=== PATIENT | male | born 1965 | race African-American/Black ===

== ENCOUNTER 2019-04-05 10:04 | Emergency (ER) | payer SELFPAY ==
[~2019-04-05] VITALS: Ht 182.9 cm; Wt 90.7 kg
[2019-04-05 10:04] VITALS: BP 162/97
--- NOTE | 2019-04-05 11:13 | PHYS DOC ---
Past Medical History Past Medical History: High Cholesterol, Hypertension Past Surgical History: No Surgical History Alcohol Use: Occasionally Drug Use: Marijuana, Other Social History Narrative: K2 Adult General Chief Complaint Chief Complaint: ANXIETY/PANIC ATTACK HPI HPI Patient is a 53 year old homeless male who presents via EMS with complaining of panic attack. Patient complaining of frequent episodes of panic attack for the last 10 days and states since this morning he had a constant panic attack and was seen at a mental place for treatment but ambulance was called a cousin of his anxiety. Patient denies suicidal or homicidal ideation and hallucination. Patient denies using alcohol and drugs. Review of Systems Review of Systems Constitutional: Denies fever or chills [] Eyes: Denies change in visual acuity, redness, or eye pain [] HENT: Denies nasal congestion or sore throat [] Respiratory: Denies cough or shortness of breath [] Cardiovascular: No additional information not addressed in HPI [] GI: Denies abdominal pain, nausea, vomiting, bloody stools or diarrhea [] : Denies dysuria or hematuria [] Musculoskeletal: Denies back pain or joint pain [] Integument: Denies rash or skin lesions [] Neurologic: Denies headache, focal weakness or sensory changes [] Endocrine: Denies polyuria or polydipsia [] All other systems were reviewed and found to be within normal limits, except as documented in this note. Allergies Allergies Allergies Coded Allergies Type Severity Reaction Last Updated Verified lisinopril Allergy Intermediate "vomiting" 04/05/19 Yes Physical Exam Physical Exam Constitutional: Well developed, well nourished, no distress, non-toxic appearance. [] HENT: Normocephalic, atraumatic. Eyes: PERRLA, EOMI, conjunctiva normal, no discharge. [] Neck: Normal range of motion, no tenderness, supple, no stridor. [] Cardiovascular:Heart rate regular rhythm, no murmur [] Lungs & Thorax: Bilateral breath sounds clear to auscultation [] Abdomen: Bowel sounds normal, soft, no tenderness, no masses, no pulsatile masses. [] Skin: Warm, dry, no erythema, no rash. [] Back: No tenderness, no CVA tenderness. [] Extremities: No tenderness, no cyanosis, no clubbing, ROM intact, no edema. [] Neurologic: Alert and oriented X 3, no focal deficits noted. [] Psychologic: Affect normal, judgement normal, mood normal. [] Current Patient Data Vital Signs Vital Signs Date Time Temp Pulse Resp B/P (MAP) Pulse Ox O2 Delivery O2 Flow Rate FiO2 04/05/19 10:04 97.6 59 18 162/97 (118) 99 Room Air 97.6 EKG EKG [] Radiology/Procedures Radiology/Procedures [] Course & Med Decision Making Course & Med Decision Making Evaluation of patient in ER showed 53-year-old homeless patient presented to ER with complaining of panic attack. Patient was evaluated yesterday at [facility] for the same problem and did not get any medication. Patient was evaluated by PAT team staff and did not have criteria for inpatient treatment. Resources for shelters and mental health clinic was provided. Short time hydroxyzine#10 and Xanax#10 prescription was given. discharge: I've spoken with the patient and/or caregivers. I've explained the patient's condition, diagnosis and treatment plan based on information available to me at this time. I've answered the patient's and/or caregivers questions and addressed any concerns. The patient and/or caregivers have a good understanding the patient's diagnosis, condition and treatment plan as can be expected at this point. Vital signs have been stabilized. The patient's condition is stable for discharge from the emergency department. The patient will pursue further outpatient evaluation with her primary care provider or other designated consulting physician as outlined in the discharge instructions. Patient and/or caregivers are agreeable to this plan of care and follow-up instructions have been explained in detail. The patient and/or caregivers have received these instructions in written format and expressed understanding of these discharge instructions. The patient and her caregivers are aware that if any significant change in condition or worsening of symptoms should prompt him to immediately return to this of the closest emergency department. If an emergent department is not readily available I would encourage him to call 911. Loc Disclaimer [place] Disclaimer This electronic medical record was generated, in whole or in part, using a voice recognition dictation system. Departure Departure Impression: Primary Impression: Panic attack Additional Impressions: Homelessness Insomnia Disposition: HOME, SELF-CARE (at 1137) Condition: IMPROVED Patient Instructions: Anxiety and Panic Attacks Additional Instructions: Drink plenty of liquids Follow-up with your primary care physician in 3-5 days Return to ER if not getting better Follow-up with mental health clinic Scripts Alprazolam (XANAX) 0.5 Mg Tablet 1 TAB PO TID PRN for ANXIETY, #10 TAB Prov: SHANDRA LUNSFORD MD 04/05/19 Hydroxyzine Hcl (HYDROXYZINE HCL) 25 Mg Tablet 1 TAB PO QHS PRN for itching, #10 TAB Prov: SHANDRA LUNSFORD MD 04/05/19 Problem Qualifiers Additional Impressions: Insomnia Insomnia type: unspecified Qualified Codes: G47.00 - Insomnia, unspecified SHANDRA LUNSFORD MD Apr 05, 2019 11:13
[2019-04-05] MEDS ORDERED: ALPR0.5T PO (11:41)
[2019-04-05] MEDS ORDERED: HYDR25TA PO (11:41)
== END 2019-04-05 11:55 | disposition home or self-care (01) ==
LOC: ER 10:04
DX: F41.0 Panic disorder [episodic paroxysmal anxiety] (principal); G47.00 Insomnia, unspecified; Z59.0 Homelessness; E78.00 Pure hypercholesterolemia, unspecified; I10 Essential (primary) hypertension; Z88.8 Allergy status to other drugs, medicaments and biological substances
CPT/HCPCS: 99283

== ENCOUNTER 2019-04-14 23:07 | Emergency (ER) | payer SELFPAY ==
[~2019-04-14] VITALS: Ht 182.9 cm; Wt 90.7 kg
[~2019-04-14 23:07] MED LIST: ALPR0.5T PO; HYDR25TA PO
[2019-04-15] MEDS ORDERED: IV NORMAL SALINE 1000ML BAG 1,000 ML IV ONE
[2019-04-15 00:08] LABS: BASO # 0.1 x10^3/uL (0.0-0.2); BASO % 1 % (0-3); EOS # 0.2 x10^3/uL (0.0-0.7); EOS % 3 % (0-3); HEMATOCRIT 38.3 % (39.0-53.0); HEMOGLOBIN 13.2 g/dL (13.0-17.5); LYMPH # 2.1 x10^3/uL (1.0-4.8); LYMPH % 30 % (24-48); MEAN CORPUSCULAR HEMOGLOBIN 32 pg (25-35); MEAN CORPUSCULAR HGB CONC 35 g/dL (31-37); MEAN CORPUSCULAR VOLUME 93 fL (79-100); MONO # 0.8 x10^3/uL (0.0-1.1); MONO % 12 % (0-9); NEUT # 3.8 x10^3/uL (1.8-7.7); NEUT % 54 % (31-73); PLATELET COUNT 226 x10^3/uL (140-400); RED BLOOD COUNT 4.11 x10^6/uL (4.30-5.70); RED CELL DISTRIBUTION WIDTH 13.5 % (11.5-14.5); WHITE BLOOD COUNT 7.1 x10^3/uL (4.0-11.0)
[2019-04-15 00:15] LABS: CALCIUM 8.8 mg/dL (8.5-10.1); CREATININE 0.9 mg/dL (0.7-1.3); GFR 107.6; POTASSIUM 4.1 mmol/L (3.5-5.1)
[2019-04-15 00:21] LABS: ALBUMIN 3.9 g/dL (3.4-5.0); ALBUMIN/GLOBULIN RATIO 1.3 (1.0-1.7); MAGNESIUM 2.2 mg/dL (1.8-2.4); TOTAL BILIRUBIN 0.3 mg/dL (0.2-1.0)
[2019-04-15 00:27] VITALS: BP 135/87
[2019-04-15] MEDS ORDERED: LORA0.5T96 PO (00:30)
--- NOTE | 2019-04-15 00:30 | PHYS DOC ---
Past Medical History Past Medical History: Anxiety, High Cholesterol, Hypertension Past Surgical History: No Surgical History Smoking: Cigarettes Alcohol Use: Occasionally Drug Use: Marijuana Adult General Chief Complaint Chief Complaint: ANXIETY/PANIC ATTACK HPI HPI 53 y/o male presents via EMS with report of palpitations and increased anxiety x 1 hour. Reports some associated headache and "chest tightness". Denies fever/chills. Denies neck pain. Denies trauma. Reports tried taking alpraz olam and hydroxyzine without improvement of symptoms. Denies leg swelling or calf tenderness. Review of Systems Review of Systems Constitutional: Denies fever or chills Eyes: Denies redness or eye pain HENT: Denies nasal congestion or sore throat Respiratory: Denies cough or shortness of breath Cardiovascular: Reports chest "tightness" and palpitations GI: Denies abdominal pain, nausea, or vomiting : Denies dysuria or hematuria Musculoskeletal: Denies back pain or joint pain Integument: Denies rash or skin lesions Neurologic: Reports headache; denies focal weakness or sensory changes Psychiatric: Reports life stressors and anxiety; denies suicidal or homicidal ideation Complete systems were reviewed and found to be within normal limits, except as documented in this note. Current Medications Current Medications Current Medications Medications (Trade) Dose Ordered Sig/Reymundo Start Time Stop Time Status Last Admin Dose Admin Lorazepam (Ativan Inj) 0.5 mg 1X ONCE 04/15/19 00:00 04/15/19 00:01 DC 04/15/19 00:05 0.5 MG Sodium Chloride 1,000 ml @ 1,000 mls/hr 1X ONCE 04/15/19 00:00 04/15/19 00:47 DC 04/15/19 00:04 1,000 MLS/HR Allergies Allergies Allergies Coded Allergies Type Severity Reaction Last Updated Verified lisinopril Allergy Intermediate "vomiting" 04/05/19 Yes Physical Exam Physical Exam Constitutional: Well developed, well nourished, anxious, non-toxic appearance HENT: Normocephalic, atraumatic, oropharynx moist Eyes: EOMI, PERRL, conjunctiva normal, no discharge Neck: Normal range of motion, no tenderness, supple Cardiovascular: Heart rate normal, regular rhythm Lungs & Thorax: Bilateral breath sounds clear to auscultation, no wheezing Abdomen: Soft, no tenderness Skin: Warm, dry, no erythema, no rash Extremities: No tenderness, ROM intact, no edema Neurologic: Alert and oriented X 3, normal sensation and motor function, cerebellar function intact, no focal deficits noted Psychologic: Affect anxious, judgement normal Current Patient Data Vital Signs Vital Signs Date Time Temp Pulse Resp B/P (MAP) Pulse Ox O2 Delivery O2 Flow Rate FiO2 04/15/19 00:27 70 16 135/87 (103) 95 Room Air 04/14/19 23:10 98.1 98.1 Lab Values Laboratory Tests Test 04/14/19 23:59 White Blood Count 7.1 x10^3/uL (4.0-11.0) Red Blood Count 4.11 x10^6/uL (4.30-5.70) L Hemoglobin 13.2 g/dL (13.0-17.5) Hematocrit 38.3 % (39.0-53.0) L Mean Corpuscular Volume 93 fL (79-100) Mean Corpuscular Hemoglobin 32 pg (25-35) Mean Corpuscular Hemoglobin Concent 35 g/dL (31-37) Red Cell Distribution Width 13.5 % (11.5-14.5) Platelet Count 226 x10^3/uL (140-400) Neutrophils (%) (Auto) 54 % (31-73) Lymphocytes (%) (Auto) 30 % (24-48) Monocytes (%) (Auto) 12 % (0-9) H Eosinophils (%) (Auto) 3 % (0-3) Basophils (%) (Auto) 1 % (0-3) Neutrophils # (Auto) 3.8 x10^3/uL (1.8-7.7) Lymphocytes # (Auto) 2.1 x10^3/uL (1.0-4.8) Monocytes # (Auto) 0.8 x10^3/uL (0.0-1.1) Eosinophils # (Auto) 0.2 x10^3/uL (0.0-0.7) Basophils # (Auto) 0.1 x10^3/uL (0.0-0.2) Sodium Level 143 mmol/L (136-145) Potassium Level 4.1 mmol/L (3.5-5.1) Chloride Level 107 mmol/L (98-107) Carbon Dioxide Level 31 mmol/L (21-32) Anion Gap 5 (6-14) L Blood Urea Nitrogen 18 mg/dL (8-26) Creatinine 0.9 mg/dL (0.7-1.3) Estimated GFR (Cockcroft-Gault) 107.6 BUN/Creatinine Ratio 20 (6-20) Glucose Level 111 mg/dL (70-99) H Calcium Level 8.8 mg/dL (8.5-10.1) Magnesium Level 2.2 mg/dL (1.8-2.4) Total Bilirubin 0.3 mg/dL (0.2-1.0) Aspartate Amino Transferase (AST) 26 U/L (15-37) Alanine Aminotransferase (ALT) 22 U/L (16-63) Alkaline Phosphatase 36 U/L (46-116) L Total Protein 7.0 g/dL (6.4-8.2) Albumin 3.9 g/dL (3.4-5.0) Albumin/Globulin Ratio 1.3 (1.0-1.7) Laboratory Tests 04/14/19 23:59 Laboratory Tests 04/14/19 23:59 EKG EKG @2312 NSR at 81bpm, NO ST elevation, QRS 92ms. QT/QTc 354/412ms, nonspecific t wave inversion III Radiology/Procedures Radiology/Procedures ROCEDURE: CHEST PA & LATERAL CHEST PA LATERAL Technique: PA and lateral views of the chest were obtained. Clinical History: Chest tightness and palpitations Comparison: None. Findings: The heart and pulmonary vasculature appear within normal limits. There is vague patchy opacity in the lower lungs. The pleural margins are clear. Impression: Mild basal infiltrates likely discoid atelectasis. Electronically signed by: Layton Briggs III, MD (04/15/2019 5:53 AM) [facility] Course & Med Decision Making Course & Med Decision Making Pertinent Labs and Imaging studies reviewed. (See chart for details) Patient presents with HPI and physical exam consistent for anxiety attack. Patient with NSR on EKG. Labs obtained and posted to chart. CXR without acute process. Symptomatic treatment provided with interval improvement. Patient stable for discharge with outpatient follow-up with PCP. Discussed findings and plan with patient, who acknowledges understanding and agreement. Dragon Disclaimer Dragon Disclaimer This electronic medical record was generated, in whole or in part, using a voice recognition dictation system. Departure Departure Impression: Primary Impression: Palpitations Additional Impression: Anxiety Disposition: 01 HOME, SELF-CARE Condition: STABLE Referrals: NO PCP (PCP) Patient Instructions: Anxiety and Panic Attacks, [id number], Palpitations, [id number] Scripts Lorazepam (ATIVAN) 0.5 Mg Tablet 0.5 MG PO TID PRN for ANXIETY / AGITATION, #10 TAB Prov: PROMISE GORE DO 04/15/19 Problem Qualifiers PROMISE GORE DO Apr 15, 2019 00:30
--- NOTE | 2019-04-15 05:56 | RAD ---
CHEST PA LATERAL Technique: PA and lateral views of the chest were obtained. Clinical History: Chest tightness and palpitations Comparison: None. Findings: The heart and pulmonary vasculature appear within normal limits. There is vague patchy opacity in the lower lungs. The pleural margins are clear. Impression: Mild basal infiltrates likely discoid atelectasis. Electronically signed by: Layton Briggs III, MD (04/15/2019 5:53 AM) [facility]
--- NOTE | 2019-04-15 08:02 | EKG ---
[facility] [address] [place] [address] Test Date: 2019-04-14 Test Time: 23:12:57 Pat Name: JOEY NARANJO Department: Room: Gender: M [employer]: : 1965 Requested By: PROMISE GORE Order Number: [id number] Reading MD: Measurements Intervals [place] Rate: 81 P: 58 [place]: 160 QRS: 14 QRSD: 92 T: 17 QT: 354 QTc: 412 Interpretive Statements SINUS RHYTHM LEFT ATRIAL ABNORMALITY ABNORMAL ECG RI6.01 No previous ECG available for comparison
== END 2019-04-15 00:47 | disposition home or self-care (01) ==
LOC: ER 23:07
DX: R00.2 Palpitations (principal); F41.9 Anxiety disorder, unspecified; R51 Headache; R07.89 Other chest pain; E78.00 Pure hypercholesterolemia, unspecified; I10 Essential (primary) hypertension; F17.210 Nicotine dependence, cigarettes, uncomplicated; Z88.8 Allergy status to other drugs, medicaments and biological substances
CPT/HCPCS: 36415; 71046; 80053; 83735; 85025; 93005; 96374; 99285; J2060; J7030

== ENCOUNTER 2019-04-17 01:07 | Emergency (ER) | payer SELFPAY ==
[~2019-04-17] VITALS: Ht 182.9 cm; Wt 86.2 kg
[~2019-04-17 01:07] MED LIST changes: +LORA0.5T96 PO
[2019-04-17 01:53] LABS: BASO # 0.1 x10^3/uL (0.0-0.2); BASO % 1 % (0-3); EOS # 0.3 x10^3/uL (0.0-0.7); EOS % 4 % (0-3); HEMATOCRIT 40.9 % (39.0-53.0); HEMOGLOBIN 13.9 g/dL (13.0-17.5); LYMPH # 1.9 x10^3/uL (1.0-4.8); LYMPH % 23 % (24-48); MEAN CORPUSCULAR HEMOGLOBIN 32 pg (25-35); MEAN CORPUSCULAR HGB CONC 34 g/dL (31-37); MEAN CORPUSCULAR VOLUME 94 fL (79-100); MONO # 0.9 x10^3/uL (0.0-1.1); MONO % 11 % (0-9); NEUT % 61 % (31-73); PLATELET COUNT 244 x10^3/uL (140-400); RED BLOOD COUNT 4.38 x10^6/uL (4.30-5.70); RED CELL DISTRIBUTION WIDTH 13.4 % (11.5-14.5); WHITE BLOOD COUNT 8.1 x10^3/uL (4.0-11.0)
[2019-04-17 02:01] LABS: CALCIUM 8.8 mg/dL (8.5-10.1); GFR 95.3
[2019-04-17 02:08] LABS: ALBUMIN/GLOBULIN RATIO 1.2 (1.0-1.7); TOTAL BILIRUBIN 0.4 mg/dL (0.2-1.0); TOTAL PROTEIN 7.3 g/dL (6.4-8.2)
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
[2019-04-17 03:32] VITALS: BP 122/86
== END 2019-04-17 03:33 | disposition home or self-care (01) ==
LOC: ER 01:07
DX: T65.891A Toxic effect of other specified substances, accidental (unintentional), initial encounter (principal); R20.8 Other disturbances of skin sensation; I10 Essential (primary) hypertension; E11.9 Type 2 diabetes mellitus without complications; Z88.8 Allergy status to other drugs, medicaments and biological substances; Y93.89 Activity, other specified; Y92.89 Other specified places as the place of occurrence of the external cause; Y99.8 Other external cause status
CPT/HCPCS: 36415; 80053; 85025; 99284

== ENCOUNTER 2020-09-29 15:44 | Emergency (ER) | payer SELFPAY ==
[~2020-09-29] VITALS: Ht 182.9 cm; Wt 95.0 kg
[2020-09-29 16:35] LABS: BASO # 0.1 x10^3/uL (0.0-0.2); BASO % 1 % (0-3); EOS % 0 % (0-3); HEMOGLOBIN 17.3 g/dL (13.0-17.5); LYMPH # 1.3 x10^3/uL (1.0-4.8); LYMPH % 13 % (24-48); MEAN CORPUSCULAR HEMOGLOBIN 33 pg (25-35); MEAN CORPUSCULAR HGB CONC 35 g/dL (31-37); MEAN CORPUSCULAR VOLUME 94 fL (79-100); MONO # 0.9 x10^3/uL (0.0-1.1); MONO % 10 % (0-9); NEUT # 7.6 x10^3/uL (1.8-7.7); NEUT % 77 % (31-73); PLATELET COUNT 258 x10^3/uL (140-400); RED BLOOD COUNT 5.21 x10^6/uL (4.30-5.70); RED CELL DISTRIBUTION WIDTH 14.8 % (11.5-14.5); WHITE BLOOD COUNT 9.9 x10^3/uL (4.0-11.0)
[2020-09-29 16:52] LABS: CALCIUM 9.5 mg/dL (8.5-10.1); CREATININE 1.1 mg/dL (0.7-1.3); GFR 84.7; POTASSIUM 4.1 mmol/L (3.5-5.1)
--- NOTE | 2020-09-29 17:01 | RAD ---
Chest, PA and Lateral: Technique: PA and lateral views of the chest were obtained. History: Chest pain. Comparison: 04/14/2019. Findings: The heart and pulmonary vasculature appear within normal limits. Mild bibasilar lung airspace opacit ies.. The pleural margins are clear. Impression: Mild bibasilar lung airspace opacities likely atelectasis or infiltrates.. Electronically signed by: Karri Westbrook MD (09/29/2020 4:58 PM) [id number]
[2020-09-29] MEDS ORDERED: AMLO-187 PO (17:58)
--- NOTE | 2020-09-29 17:58 | ED.ADGEN ---
Past Medical History Past Medical History: Diabetes-Type II, Hypertension Past Surgical History: No Surgical History Smoking Status: Current Every Day Smoker Alcohol Use: None Drug Use: None General Adult EDM: Chief Complaint: CHEST PAIN HPI: HPI: Patient is a 55-year-old male who presents to the emergency room complaining of left upper arm pain that started last night and has been constant. He states that sometimes it dulls but it always feels like it is there. He is denies any radiation into his chest. He denies shortness of breath, cough, URI symptoms, abdominal pain, nausea, vomiting, constipation, dizziness. He has been out of his blood pressure medication for the last couple of months. He denies any, headache, numbness, weakness. He denies any trauma to the arm. He denies any numbness or weakness in the arm. He denies any radiation into the neck. Review of Systems: Review of Systems: Complete ROS is negative unless otherwise documented in HPI Current Medications: Current Medications Medications (Trade) Dose Ordered Sig/Reymundo Start Time Stop Time Status Last Admin Dose Admin Amlodipine Besylate (Norvasc) 5 mg 1X ONCE 09/29/20 17:45 09/29/20 17:46 DC Allergies: Allergies: Allergies Coded Allergies Type Severity Reaction Last Updated Verified lisinopril Allergy Intermediate "vomiting" 04/05/19 Yes Physical Exam: PE: General: Awake, alert, NAD. Well Nourished, well hydrated. Cooperative HEENT: Atraumatic, EOMI, PERRL, airway patent, moist oral mucosa Neck: Supple, trachea midline Respiratory: CTA bilaterally, normal effort, no wheezing/crackles CV: RRR, no murmur, cap refill <2 GI: Soft, nondistended, nontender, no masses MSK: No obvious deformities Skin: Warm, dry, intact Neuro: A&O x3, speech NL, sensory and motor grossly intact, no focal deficits Psych: Normal affect, normal mood, not suicidal or homicidal Current Patient Data: Labs: Laboratory Tests Test 09/29/20 15:59 White Blood Count 9.9 x10^3/uL (4.0-11.0) Red Blood Count 5.21 x10^6/uL (4.30-5.70) Hemoglobin 17.3 g/dL (13.0-17.5) Hematocrit 49.0 % (39.0-53.0) Mean Corpuscular Volume 94 fL (79-100) Mean Corpuscular Hemoglobin 33 pg (25-35) Mean Corpuscular Hemoglobin Concent 35 g/dL (31-37) Red Cell Distribution Width 14.8 % (11.5-14.5) H Platelet Count 258 x10^3/uL (140-400) Neutrophils (%) (Auto) 77 % (31-73) H Lymphocytes (%) (Auto) 13 % (24-48) L Monocytes (%) (Auto) 10 % (0-9) H Eosinophils (%) (Auto) 0 % (0-3) Basophils (%) (Auto) 1 % (0-3) Neutrophils # (Auto) 7.6 x10^3/uL (1.8-7.7) Lymphocytes # (Auto) 1.3 x10^3/uL (1.0-4.8) Monocytes # (Auto) 0.9 x10^3/uL (0.0-1.1) Eosinophils # (Auto) 0.0 x10^3/uL (0.0-0.7) Basophils # (Auto) 0.1 x10^3/uL (0.0-0.2) Sodium Level 140 mmol/L (136-145) Potassium Level 4.1 mmol/L (3.5-5.1) Chloride Level 98 mmol/L (98-107) Carbon Dioxide Level 25 mmol/L (21-32) Anion Gap 17 (6-14) H Blood Urea Nitrogen 14 mg/dL (8-26) Creatinine 1.1 mg/dL (0.7-1.3) Estimated GFR (Cockcroft-Gault) 84.7 Glucose Level 101 mg/dL (70-99) H Calcium Level 9.5 mg/dL (8.5-10.1) Troponin I Quantitative < 0.017 ng/mL (0.000-0.055) Laboratory Tests 09/29/20 15:59 Laboratory Tests 09/29/20 15:59 EKG: EKG: [] Heart Score: C/O Chest Pain: Yes HEART Score for Chest Pain: HEART Score for Chest Pain Response (Comments) Value History Slighlty/Non-Suspicious 0 ECG Normal 0 Age >45 - < 65 1 Risk Factors 1 or 2 Risk Factors 1 Total 2 Risk Factors: Risk Factors: DM, Current or recent (<one month) smoker, HTN, HLP, family history of CAD, obesity. Risk Scores: Score 0 - 3: 2.5% MACE over next 6 weeks - Discharge Home Score 4 - 6: 20.3% MACE over next 6 weeks - Admit for Clinical Observation Score 7 - 10: 72.7% MACE over next 6 weeks - Early Invasive Strategies Radiology/Procedures: Radiology/Procedures: [] Course & Med Decision Making: Course & Med Decision Making Pertinent Labs and Imaging studies reviewed. (See chart for details) Patient is a 55-year-old male with past medical history of hypertension who presents to the emergency room complaining of left arm pain. Patient does not have any radiation to the neck or chest which would make it more suggestive as cardiac pathology. EKG does not show a STEMI at this time. Cardiac lab work was ordered which was normal. Patient will need a delta troponin. The arm appears normal with normal range of motion and sensation. Radial pulse is intact. Patient does not have any signs of trauma. We will give him amlodipine for his blood pressure. Patient was discussed with Dr. Corado who will assume care. Loc Disclaimer: Loc Disclaimer: This electronic medical record was generated, in whole or in part, using a voice recognition dictation system. Departure Departure Impression: Primary Impression: Arm pain Additional Impression: Hypertension Referrals: NO PCP (PCP) Scripts Amlodipine Besylate (AMLODIPINE BESYLATE) 10 Mg Tablet 10 MG PO DAILY for 90 Days, #90 TAB Prov: RUBI GABRIEL MD 09/29/20 Problem Qualifiers RUBI GABRIEL MD Sep 29, 2020 17:58
[2020-09-29] MEDS: amLODIPine BESYLATE 5 MG TABLET PO ONE (18:08)
[2020-09-29 19:19] VITALS: BP 184/126
== END 2020-09-29 19:35 | disposition home or self-care (01) ==
LOC: ER 15:44
DX: M79.622 Pain in left upper arm (principal); R07.89 Other chest pain; I10 Essential (primary) hypertension; E11.9 Type 2 diabetes mellitus without complications; F17.200 Nicotine dependence, unspecified, uncomplicated
CPT/HCPCS: 36415; 71046; 80048; 84484; 85025; 93005; 99285-25

== ENCOUNTER 2020-10-01 20:37 | Emergency (ER) | payer SELFPAY ==
[~2020-10-01] VITALS: Ht 182.9 cm; Wt 93.1 kg
[~2020-10-01 20:37] MED LIST changes: +AMLO-187 PO
[2020-10-01] MEDS ORDERED: MORPHINE SULFATE 4 MG/ML VIAL. IV/SQ PRN (21:00)
[2020-10-01] MEDS: ASPIRIN 325 MG TABLET PO ONE (21:00)
--- NOTE | 2020-10-01 21:31 | RAD ---
EXAM: CHEST 1 VIEW History: Chest pain COMPARISON: TECHNIQUE: Single portable radiograph of the chest FINDINGS: The cardiac silhouette is unremarkable. The lungs are clear bilaterally. The costophrenic sulci are clear and well demarcated. . IMPRESSION: No radiographic evidence of an acute cardiopulmonary process. Electronically signed by: Karri Westbrook MD (10/01/2020 9:28 PM) [id number]
[2020-10-01 21:39] LABS: BASO # 0.1 x10^3/uL (0.0-0.2); BASO % 1 % (0-3); EOS % 0 % (0-3); HEMATOCRIT 51.8 % (39.0-53.0); LYMPH # 1.4 x10^3/uL (1.0-4.8); LYMPH % 16 % (24-48); MEAN CORPUSCULAR HEMOGLOBIN 33 pg (25-35); MEAN CORPUSCULAR HGB CONC 35 g/dL (31-37); MEAN CORPUSCULAR VOLUME 94 fL (79-100); MONO # 1.1 x10^3/uL (0.0-1.1); MONO % 12 % (0-9); NEUT # 6.5 x10^3/uL (1.8-7.7); NEUT % 71 % (31-73); PLATELET COUNT 223 x10^3/uL (140-400); RED BLOOD COUNT 5.48 x10^6/uL (4.30-5.70); RED CELL DISTRIBUTION WIDTH 14.8 % (11.5-14.5); WHITE BLOOD COUNT 9.2 x10^3/uL (4.0-11.0)
[2020-10-01 21:49] LABS: CALCIUM 9.2 mg/dL (8.5-10.1); CREATININE 1.3 mg/dL (0.7-1.3); GFR 69.9; POTASSIUM 4.6 mmol/L (3.5-5.1)
[2020-10-01 21:55] LABS: ALBUMIN 4.7 g/dL (3.4-5.0); ALBUMIN/GLOBULIN RATIO 1.3 (1.0-1.7); MAGNESIUM 2.6 mg/dL (1.8-2.4); TOTAL PROTEIN 8.3 g/dL (6.4-8.2)
[2020-10-01 22:07] LABS: BILIRUBIN,URINE MODERATE (NEG); CLARITY,URINE CLEAR; COLOR,URINE AMBER; NITRITE,URINE NEGATIVE (NEG); PROTEIN,URINE 30 mg/dL (NEG-TRACE)
[2020-10-01 22:13] LABS: HYALINE CASTS, URINE MANY /HPF
[2020-10-01 22:20] LABS: BACTERIA,URINE FEW /HPF (0-FEW)
[2020-10-01 22:23] LABS: BARBITURATES NEG (NEG); BENZODIAZEPINES NEG (NEG); CANNABINOIDS NEG (NEG); COCAINE NEG (NEG); METHADONE NEG (NEG); OPIATES NEG (NEG); PHENCYCLIDINE NEG (NEG)
[2020-10-01 22:24] LABS: AMPHETAMINE/METHAMPHETAMINE NEG (NEG)
--- NOTE | 2020-10-01 22:50 | EKG ---
[facility] [address] [place] [address] Test Date: 2020-10-01 Test Time: 21:46:42 Pat Name: JOEY NARANJO Department: Room: Gender: M [employer]: : 1965 Requested By: EDMUNDO MORENO Order Number: [id number] Reading MD: Measurements Intervals [place] Rate: 86 P: 47 [place]: 144 QRS: 2 QRSD: 88 T: -7 QT: 352 QTc: 424 Interpretive Statements SINUS RHYTHM LEFT ATRIAL ABNORMALITY ABNORMAL ECG RI6.02 No previous ECG available for comparison
--- NOTE | 2020-10-01 22:53 | EKG ---
[facility] [address] [place] [address] Test Date: 2020-10-01 Test Time: 20:41:53 Pat Name: JOEY NARANJO Department: Room: Gender: M Child Psychologist: : 1965 Requested By: EDMUNDO MORENO Order Number: [id number] Reading MD: Measurements Intervals [place] Rate: 88 P: 54 NM: 146 QRS: 3 QRSD: 88 T: 1 QT: 346 QTc: 422 Interpretive Statements SINUS RHYTHM LEFT ATRIAL ABNORMALITY ABNORMAL ECG RI6.01 No previous ECG available for comparison
--- NOTE | 2020-10-01 22:58 | PHYS DOC ---
Past Medical History Past Medical History: Hypertension Past Surgical History: No Surgical History Smoking Status: Current Every Day Smoker Additional Information: 0.5 PPD Alcohol Use: Occasionally Drug Use: None General Adult EDM: Chief Complaint: CHEST PAIN HPI: HPI: Patient is a 55 year old male with history of hypertension who presents to the ED today complaining of 5 out of 10 left-sided chest pain, left arm pain, symptoms began at 6 PM. Patient denies anything specifically exacerbating or relieving the symptoms. Describes the chest pain as sharp and intermittent. He states he was seen in the ED 3 days ago for left arm pain and also high blood pressure and sent home with Amlodpine. He also states he has been feeling diaphoretic since 6 PM with intermittent episodes of shortness of breath. Review of Systems: Review of Systems: Constitutional: Denies fever or chills. [] Eyes: Denies change in visual acuity. [] HENT: Denies nasal congestion or sore throat. [] Respiratory: Reports shortness of breath, denies coughing Cardiovascular: Reports left-sided chest pain and left arm pain. GI: Denies abdominal pain, nausea, vomiting, bloody stools or diarrhea. [] : Denies dysuria. [] Musculoskeletal: Denies back pain or joint pain. [] Integument: Denies rash. [] Neurologic: Denies headache, focal weakness or sensory changes. [] Psychiatric: Denies depression or anxiety. [] Heart Score: C/O Chest Pain: Yes HEART Score for Chest Pain: HEART Score for Chest Pain Response (Comments) Value History Slighlty/Non-Suspicious 0 ECG Nonspecific Repolarizatio 1 Age >45 - < 65 1 Risk Factors 1 or 2 Risk Factors 1 Troponin >1-<3x Normal Limit 1 Total 4 Risk Factors: Risk Factors: DM, Current or recent (<one month) smoker, HTN, HLP, family history of CAD, obesity. Risk Scores: Score 0 - 3: 2.5% MACE over next 6 weeks - Discharge Home Score 4 - 6: 20.3% MACE over next 6 weeks - Admit for Clinical Observation Score 7 - 10: 72.7% MACE over next 6 weeks - Early Invasive Strategies Current Medications: Current Medications Medications (Trade) Dose Ordered Sig/Reymundo Start Time Stop Time Status Last Admin Dose Admin Aspirin (Gabriela Aspirin) 325 mg 1X ONCE 10/01/20 21:00 10/01/20 21:01 DC Morphine Sulfate (Morphine Sulfate) 4 mg PRN Q15MIN PRN 10/01/20 21:00 10/02/20 20:59 Allergies: Allergies: Allergies Coded Allergies Type Severity Reaction Last Updated Verified lisinopril Allergy Intermediate "vomiting" 04/05/19 Yes Physical Exam: PE: Constitutional: Well developed, well nourished, no acute distress, non-toxic appearance. [] HENT: Normocephalic, atraumatic, bilateral external ears normal, oropharynx moist, no oral exudates, nose normal. [] Eyes: PERRLA, EOMI, conjunctiva normal, no discharge. [] Neck: Normal range of motion, no tenderness, supple, no stridor. [] Cardiovascular:Heart rate regular rhythm, no murmur [] Lungs & Thorax: Bilateral breath sounds clear to auscultation [] Abdomen: Bowel sounds normal, soft, no tenderness, no masses, no pulsatile masses. [] Skin: Warm, dry, no erythema, no rash. [] Back: No tenderness, no CVA tenderness. [] Extremities: No tenderness, no cyanosis, no clubbing, ROM intact, no edema. [] Neurologic: Alert and oriented X 3, normal motor function, normal sensory function, no focal deficits noted. [] Psychologic: Affect normal, judgement normal, mood normal. [] Current Patient Data: Labs: Laboratory Tests Test 10/01/20 21:30 10/01/20 22:00 White Blood Count 9.2 x10^3/uL (4.0-11.0) Red Blood Count 5.48 x10^6/uL (4.30-5.70) Hemoglobin 18.0 g/dL (13.0-17.5) H Hematocrit 51.8 % (39.0-53.0) Mean Corpuscular Volume 94 fL (79-100) Mean Corpuscular Hemoglobin 33 pg (25-35) Mean Corpuscular Hemoglobin Concent 35 g/dL (31-37) Red Cell Distribution Width 14.8 % (11.5-14.5) H Platelet Count 223 x10^3/uL (140-400) Neutrophils (%) (Auto) 71 % (31-73) Lymphocytes (%) (Auto) 16 % (24-48) L Monocytes (%) (Auto) 12 % (0-9) H Eosinophils (%) (Auto) 0 % (0-3) Basophils (%) (Auto) 1 % (0-3) Neutrophils # (Auto) 6.5 x10^3/uL (1.8-7.7) Lymphocytes # (Auto) 1.4 x10^3/uL (1.0-4.8) Monocytes # (Auto) 1.1 x10^3/uL (0.0-1.1) Eosinophils # (Auto) 0.0 x10^3/uL (0.0-0.7) Basophils # (Auto) 0.1 x10^3/uL (0.0-0.2) Sodium Level 136 mmol/L (136-145) Potassium Level 4.6 mmol/L (3.5-5.1) Chloride Level 100 mmol/L (98-107) Carbon Dioxide Level 23 mmol/L (21-32) Anion Gap 13 (6-14) Blood Urea Nitrogen 27 mg/dL (8-26) H Creatinine 1.3 mg/dL (0.7-1.3) Estimated GFR (Cockcroft-Gault) 69.9 BUN/Creatinine Ratio 21 (6-20) H Glucose Level 98 mg/dL (70-99) Calcium Level 9.2 mg/dL (8.5-10.1) Magnesium Level 2.6 mg/dL (1.8-2.4) H Total Bilirubin 1.0 mg/dL (0.2-1.0) Aspartate Amino Transferase (AST) 56 U/L (15-37) H Alanine Aminotransferase (ALT) 63 U/L (16-63) Alkaline Phosphatase 60 U/L (46-116) Troponin I Quantitative 0.059 ng/mL (0.000-0.055) AG-Azy-F-Type Natriuretic Peptide 164 pg/mL (0-124) H Total Protein 8.3 g/dL (6.4-8.2) H Albumin 4.7 g/dL (3.4-5.0) Albumin/Globulin Ratio 1.3 (1.0-1.7) Thyroid Stimulating Hormone (TSH) 1.332 uIU/mL (0.358-3.74) Urine Collection Type Void Urine Color Silvia Urine Clarity Clear Urine pH 5.0 (<5.0-8.0) Urine Specific [place] 1.025 (1.000-1.030) Urine Protein 30 mg/dL (NEG-TRACE) Urine Glucose (UA) Negative mg/dL (NEG) Urine Ketones (Stick) 15 mg/dL (NEG) Urine Blood Negative (NEG) Urine Nitrite Negative (NEG) Urine Bilirubin Moderate (NEG) Urine Urobilinogen Dipstick 1.0 mg/dL (0.2 mg/dL) Urine Leukocyte Esterase Negative (NEG) Urine RBC 1-2 /HPF (0-2) Urine WBC 1-4 /HPF (0-4) Urine Squamous Epithelial Cells Mod /LPF Urine Bacteria Few /HPF (0-FEW) Urine Hyaline Casts Many /HPF Urine Mucus Slight /LPF Urine Opiates Screen Neg (NEG) Urine Methadone Screen Neg (NEG) Urine Barbiturates Neg (NEG) Urine Phencyclidine Screen Neg (NEG) Urine Amphetamine/Methamphetamine Neg (NEG) Urine Benzodiazepines Screen Neg (NEG) Urine Cocaine Screen Neg (NEG) Urine Cannabinoids Screen Neg (NEG) Urine Ethyl Alcohol Neg (NEG) Laboratory Tests 10/01/20 21:30 Laboratory Tests 10/01/20 21:30 Vital Signs: Vital Signs Date Time Temp Pulse Resp B/P (MAP) Pulse Ox O2 Delivery O2 Flow Rate FiO2 10/01/20 20:37 99.1 96 17 150/102 (118) 98 Room Air 99.1 EKG: EK interpreted by Dr. Joseph sinus rhythm heart rate 88 no STEMI [] Radiology/Procedures: Radiology/Procedures: []PROCEDURE: PORTABLE CHEST 1V EXAM: CHEST 1 VIEW History: Chest pain COMPARISON: TECHNIQUE: Single portable radiograph of the chest FINDINGS: The cardiac silhouette is unremarkable. The lungs are clear bilaterally. The costophrenic sulci are clear and well demarcated. . IMPRESSION: No radiographic evidence of an acute cardiopulmonary process. Electronically signed by: Karri Westbrook MD (10/01/2020 9:28 PM) [id number] DICTATED and SIGNED BY: KARRI WESTBROOK MD DATE: 10/01/20 [id number] 0 Course & Med Decision Making: Course & Med Decision Making Pertinent Labs and Imaging studies reviewed. (See chart for details) This is a 55-year-old male patient presented to the ED today complaining of left-sided chest pain and left arm pain, symptoms began 6 PM. Also complaining of diaphoresis. EKG is negative, troponin is 0.059, CBC CMP with no acute findings. Chest x-ray with no acute findings. Blood pressure noted at 150/102. Temp 99.1, heart rate 96, O2 sats 98% on room air. Patient was given Lovenox Admitted under Dr. Yates, routine consult placed for cardiology Went to talk to patient about his lab work, told him his troponin slightly up and considering he has chest pain and this is a second visit in the ED I recommend he gets admitted. His blood pressure was still up as well. Informed patient with that information it is important he stays so he can be seen by a hat measurer and have his blood pressure controlled, he stated he really doesn't want to stay. I took my time and expressed reasons he needs to stay. He immediately said he wants his blood pressure medicine right now. Informed patient I have ordered labetalol for him and as soon as it is available RN will bring it to him. He started asking rudely "why dont you have my medicine right now". He states every time he has asked for something in this ED we have excuses. Informed patient I do not carry blood pressure medicine or any medicines with me. Informed patient I ordered the medicine, pharmacy approves it and send it to us or if available in the ED we dispense as soon as it is approved by pharmacy. Patient continues to be rude stating that every time he asks for something in this Ed we have excuses he repeated this several time raising his tone. Informed patient this conversation is not going well I feel threatened by how he is talking to me and i will leave the room for my own safety. Informed him he is being admitted under Dr. Yates and cardiology consult has been placed. He continued to be rude talking in a manner that is threatening to me. At some point he stated he needs to leave, informed him he can sign out AGAINST MEDICAL ADVICE if he wants to go but i have to leave his room because i feel unsafe. Charge nurse notified Off note they stated he is homeless and stays with a friend. Loc Disclaimer: Loc Disclaimer: This electronic medical record was generated, in whole or in part, using a voice recognition dictation system. Departure Departure Impression: Primary Impression: NSTEMI (non-ST elevated myocardial infarction) Additional Impression: Chest pain Qualified Codes: R07.9 - Chest pain, unspecified Disposition: 09 ADMITTED INPATIENT Condition: STABLE Referrals: NO PCP (PCP) EDMUNDO MORENO APRN Oct 01, 2020 22:58
[2020-10-01] MEDS ORDERED: ACETAMINOPHEN 325 MG TABLET. PO PRN (23:00)
[2020-10-01] MEDS ORDERED: NITROGLYCERIN SUBLINGUAL 0.4 MG BOTTLE OF 25. SL PRN (23:00)
[2020-10-01] MEDS ORDERED: ONDANSETRON PF 4 MG/2 ML VIAL. IV PRN (23:00)
[2020-10-01] MEDS ORDERED: LABETALOL 20 MG/4 ML DISP.SYRIN. IVP PRN (23:00)
[2020-10-01] MEDS ORDERED: MORPHINE SULFATE 4 MG/ML VIAL. IV PRN (23:00)
[2020-10-01 23:21] VITALS: BP 167/106
== END 2020-10-01 23:40 | disposition left against medical advice (07) ==
LOC: ER 20:37
DX: I21.4 Non-ST elevation (NSTEMI) myocardial infarction (principal); R07.89 Other chest pain; R06.02 Shortness of breath; M79.602 Pain in left arm; I10 Essential (primary) hypertension; F17.200 Nicotine dependence, unspecified, uncomplicated; Z88.8 Allergy status to other drugs, medicaments and biological substances
CPT/HCPCS: 36415; 71045; 80053; 80307; 81001; 83735; 83880; 84443; 84484; 85025; 93005; 99285

== ENCOUNTER 2021-10-10 22:32 | Emergency (ER) | payer SELFPAY ==
[~2021-10-10] VITALS: Ht 188 cm; Wt 91.0 kg
[2021-10-11 00:05] VITALS: BP 136/74
--- NOTE | 2021-10-11 00:14 | PHYS DOC ---
Past Medical History Past Medical History: Hypertension Past Surgical History: No Surgical History Smoking Status: Current Every Day Smoker Alcohol Use: Occasionally Drug Use: None General Adult EDM: Chief Complaint: FOOT INJURY PAIN HPI: HPI: Patient is a 56-year-old male who presents today with right foot pain. Patient states that while at work this evening he had a dock plate fall on his inner aspect of his right foot, he comes in today for further evaluation and treatment of that injury. Patient is a to ambulate on the foot, he states that he had his shoe on during the event. Review of Systems: Review of Systems: Constitutional: Denies fever or chills. [] Eyes: Denies change in visual acuity. [] HENT: Denies nasal congestion or sore throat. [] Respiratory: Denies cough or shortness of breath. [] Cardiovascular: Denies chest pain or edema. [] GI: Denies abdominal pain, nausea, vomiting, bloody stools or diarrhea. [] : Denies dysuria. [] Musculoskeletal: Right foot pain Integument: Denies rash. [] Neurologic: Denies headache, focal weakness or sensory changes. [] Endocrine: Denies polyuria or polydipsia. [] Lymphatic: Denies swollen glands. [] Psychiatric: Denies depression or anxiety. [] Heart Score: C/O Chest Pain: No Risk Factors: Risk Factors: DM, Current or recent (<one month) smoker, HTN, HLP, family history of CAD, obesity. Risk Scores: Score 0 - 3: 2.5% MACE over next 6 weeks - Discharge Home Score 4 - 6: 20.3% MACE over next 6 weeks - Admit for Clinical Observation Score 7 - 10: 72.7% MACE over next 6 weeks - Early Invasive Strategies Allergies: Allergies: Allergies Coded Allergies Type Severity Reaction Last Updated Verified lisinopril Allergy Intermediate "vomiting" 04/05/19 Yes Physical Exam: PE: Constitutional: Well developed, well nourished, no acute distress, non-toxic jean earance. [] HENT: Normocephalic, atraumatic, bilateral external ears normal, oropharynx moist, no oral exudates, nose normal. [] Eyes: PERRLA, EOMI, conjunctiva normal, no discharge. [] Neck: Normal range of motion, no tenderness, supple, no stridor. [] Cardiovascular:Heart rate regular rhythm, no murmur [] Lungs & Thorax: Bilateral breath sounds clear to auscultation [] Abdomen: Bowel sounds normal, soft, no tenderness, no masses, no pulsatile masses. [] Skin: Warm, dry, no erythema, no rash. [] Back: No tenderness, no CVA tenderness. [] Extremities: Right foot medial aspect near the heel tenderness to touch, cap refill distal to the injury is less than 2 seconds sensory is intact distal to the injury, dorsalis pedis and posterior tibial pulses are 2+ Neurologic: Alert and oriented X 3, normal motor function, normal sensory function, no focal deficits noted. [] Psychologic: Affect normal, judgement normal, mood normal. [] Current Patient Data: Vital Signs: Vital Signs Date Time Temp Pulse Resp B/P (MAP) Pulse Ox O2 Delivery O2 Flow Rate FiO2 10/11/21 00:05 98.2 86 18 136/74 (94) 99 Room Air 98.2 EKG: EKG: [] Radiology/Procedures: Radiology/Procedures: [REASON: DOCK PLATE FELL ON FOOT PROCEDURE: ANKLE RIGHT 3V Study: 1. XR FOOT_RIGHT 3 VIEWS 2. XR EXAM OF ANKLE_RIGHT 3VIEWS Indication: Injury. Pain. Comparison: None. Findings: Right ankle: On the AP oblique view minimal bony irregularity at the tip of the medial malleolus. The lateral malleolus is intact. Symmetric ankle mortise considering the absence of weightbearing. Mild degenerative spurring along the anterior and posterior margins of the tibial plafond. Ankle joint space height is maintained. Right foot: No displaced fracture. Considering the absence of weightbearing alignment is within normal limits with the exception of mild hallux valgus. Prominent spur/excrescence off the dorsum of the talar head/neck. Small Achilles insertion enthesophyte. 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 Impression: Right ankle and right foot: 1. Minimal bony irregularity at the tip of the medial malleolus, only apparent on the AP oblique view of the ankle, is age-indeterminate but may be chronic given the reported mechanism of injury. No definitively acute fracture seen at the ankle or throughout the foot. 2. 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 Electronically signed by: BRE MAHONEY MD (10/11/2021 1:25 AM) [facility]] Course & Med Decision Making: Course & Med Decision Making Pertinent Labs and Imaging studies reviewed. (See chart for details) [id number] Louis regarding the radiological exams that were done, no acute fractures were seen at this time, patient will be placed in an Ovidio wrap and instructed to ice 20 minutes on 3-4 times daily, take [id number] Tylenol and/or ibuprofen, and follow-up with your primary care physician or your Workmen's Comp. physician for any further management and evaluation of this injury. Dragon Disclaimer: Dragon Disclaimer: This electronic medical record was generated, in whole or in part, using a voice recognition dictation system. Departure Departure Impression: Primary Impression: Contusion of right heel Qualified Codes: S90.31XA - Contusion of right foot, initial encounter Disposition: HOME / SELF CARE / HOMELESS Condition: STABLE Referrals: NO PCP (PCP) BARBARA CORTEZ II, MD Patient Instructions: Foot Contusion, RICE - Routine Care for Injuries Additional Instructions: Ice 20 minutes on 3-4 times daily to help with localized pain and swelling [id number] Tylenol and/or ibuprofen as needed for pain as labeled directed Follow-up with your primary care physician, one of the clinics listed below, Dr. Cortez who is the orthopedic doctor on-call, or your Workmen's Comp. agency for further evaluation and treatment of your injury. Ovidio wrap as needed for comfort [facility] [address] [place] [address] [facility] [address] [place] [address] [facility] [address] [facility] [place] [address] [facility] [address] [place] [address] [facility] [address] [place] [address] [facility] [address] [place] [address] [address] [place] [address] [facility] [address] [place] [address] [facility] [address] [place] [address] [facility] Department [address] [place] [address] ARVIND DUFFY CANCER REGISTRY MANAGER Oct 11, 2021 00:14
--- NOTE | 2021-10-11 01:27 | RAD ---
Study: 1. XR FOOT_RIGHT 3 VIEWS 2. XR EXAM OF ANKLE_RIGHT 3VIEWS Indication: Injury. Pain. Comparison: None. Findings: Right ankle: On the AP oblique view minimal bony irregularity at the tip of the medial malleolus. The lateral mall eolus is intact. Symmetric ankle mortise considering the absence of weightbearing. Mild degenerative spurring along the anterior and posterior margins of the tibial plafond. Ankle joint space height is maintained. Right foot: No displaced fracture. Considering the absence of weightbearing alignment is within normal limits wit h the exception of mild hallux valgus. Prominent spur/excrescence off the dorsum of the talar head/ne ck. Small Achilles insertion enthesophyte. Moderate/severe arthrosis at the great toe MTP joint cop examiner alization projecting between the first and second metatarsal heads and a triangular ossific fragment at the dorsal/medial base of the great toe proximal phalanx are favored chronic. Impression: Right ankle and right foot: 1. Minimal bony irregularity at the tip of the medial malleolus, only apparent on the AP oblique view of the ankle, is age-indeterminate but may be chronic given the reported mechanism of injury. No def initively acute fracture seen at the ankle or throughout the foot. 2. 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 Electronically signed by: BRE MAHONEY MD (10/11/2021 1:25 AM) [facility]
--- NOTE | 2021-10-11 01:27 | RAD ---
Study: 1. XR FOOT_RIGHT 3 VIEWS 2. XR EXAM OF ANKLE_RIGHT 3VIEWS Indication: Injury. Pain. Comparison: None. Findings: Right ankle: On the AP oblique view minimal bony irregularity at the tip of the medial malleolus. The lateral mall eolus is intact. Symmetric ankle mortise considering the absence of weightbearing. Mild degenerative spurring along the anterior and posterior margins of the tibial plafond. Ankle joint space height is maintained. Right foot: No displaced fracture. Considering the absence of weightbearing alignment is within normal limits wit h the exception of mild hallux valgus. Prominent spur/excrescence off the dorsum of the talar head/ne ck. Small Achilles insertion enthesophyte. Moderate/severe arthrosis at the great toe MTP joint forest examiner alization projecting between the first and second metatarsal heads and a triangular ossific fragment at the dorsal/medial base of the great toe proximal phalanx are favored chronic. Impression: Right ankle and right foot: 1. Minimal bony irregularity at the tip of the medial malleolus, only apparent on the AP oblique view of the ankle, is age-indeterminate but may be chronic given the reported mechanism of injury. No def initively acute fracture seen at the ankle or throughout the foot. 2. 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 Electronically signed by: BRE MAHONEY MD (10/11/2021 1:25 AM) [facility]
== END 2021-10-11 01:43 | disposition home or self-care (01) ==
LOC: ER 22:32
DX: S90.31XA Contusion of right foot, initial encounter (principal); I10 Essential (primary) hypertension; F17.200 Nicotine dependence, unspecified, uncomplicated; Z88.6 Allergy status to analgesic agent; W18.39XA Other fall on same level, initial encounter; Y93.89 Activity, other specified; Y92.89 Other specified places as the place of occurrence of the external cause; Y99.8 Other external cause status
CPT/HCPCS: 73610; 73630; 99284